=== PATIENT | female | born 1985 | race Caucasian/White ===

== ENCOUNTER 2022-01-03 05:19 | Day surgery (SDC) | payer OTHER ==
[2022-01-01 16:47] VITALS: BMI 22.6
[2022-01-03 11:05] VITALS: TEMP 98.9
[2022-01-03] MEDS ORDERED: SODIUM CHLORIDE 500 ML IV SCH (12:30)
[2022-01-03] MEDS ORDERED: MIDAZOLAM HCL 2 MG/2 ML SINGLE DOSE VIAL IVPUSH ONE ×2 (12:41→12:55)
[2022-01-03] MEDS ORDERED: ACETAMINOPHEN 325 MG TABLET (FP) PO ONE (16:03)
[2022-01-03] MEDS ORDERED: ACETAMINOPHEN 325 MG TABLET (FP) ONE (16:11)
[2022-01-03 17:06] VITALS: BP 132/83; PULSE 87
== END 2022-01-03 17:12 | disposition home or self-care (01) ==
LOC: JRADIR 05:19
PROVIDERS: ATTEND Internal Medicine Gastroenterology
PROC: 0FB13ZX Excision of Right Lobe Liver, Percutaneous Approach, Diagnostic (ICD-10-PCS; principal; 2022-01-03)
DX: K74.3 Primary biliary cirrhosis (principal); K75.9 Inflammatory liver disease, unspecified
CPT/HCPCS: 47000; 76942-TC; 81025; 87899; 88305-TC; 88313-TC

== ENCOUNTER 2025-06-11 08:37 | Day surgery (SDC) | payer OTHER ==
[2025-06-09 13:24] VITALS: BMI 24.3
[2025-06-11] MEDS ORDERED: LIDOCAINE HCL/PF 2% SDV 5ML VIAL ONE (10:12)
[2025-06-11 12:11] VITALS: TEMP 98
[2025-06-11 12:14] VITALS: BP 113/65; PULSE 64; RESP 16
== END 2025-06-11 11:30 | disposition home or self-care (01) ==
LOC: FASU-ENDO 08:37
PROVIDERS: ATTEND Internal Medicine Gastroenterology
PROC: 0DB68ZX Excision of Stomach, Via Natural or Artificial Opening Endoscopic, Diagnostic (ICD-10-PCS; principal; 2025-06-11 10:25)
DX: Z87.11 Personal history of peptic ulcer disease (principal); K25.9 Gastric ulcer, unspecified as acute or chronic, without hemorrhage or perforation; K31.89 Other diseases of stomach and duodenum
CPT/HCPCS: 81025; 88305-TC; 88342-TC